=== PATIENT | female | born 1940 | race Caucasian/White ===

== ENCOUNTER 2022-04-18 12:58 | Inpatient (IN) | payer MEDICARE ==
[~2022-04-18 12:58] MED LIST: Iopamidol-370 76% 500 ML 1 ML ONE
[2022-04-18] MEDS ORDERED: FENTANYL 50 MCG/ML 1 ML VIAL ONE ×2 (13:07)
[2022-04-18] MEDS ORDERED: Fentanyl CADD 100 ML IV SCH (13:15)
[2022-04-18 13:25] LABS: Actual Bicarbonate (HCO3a) 29.2 mEq/L (22-28); Analyzer IN Cardio ER; Base Excess (BEa) 3.5 mEq/L (-2.0 to +3.0); CO2 Tension 49.3 mmHg (35.0-45.0); Calcium, Ionized (arterial) 1.11 mmol/L (1.12-1.30); Hemoglobin (Hb) 12.2 g/dL (12.0-16.0); O2 Tension (PaO2), arterial 105.7 mmHg (> 70.0); Potassium - ABG Lab 4.05 mmol/L (3.70-5.30); pH, Arterial 7.39 (7.35-7.45)
[2022-04-18 13:27] LABS: ALV-art Gradient 117.875 mmHg (0-20); Puncture Site RRA
[2022-04-18 13:46] LABS: #Lymphocytes 0.4 thou/uL (1.20-3.40); #Monocytes 0.2 thou/uL (0.11-0.59); %Basophils 0.1 % (0.0-1.0); %Eosinophils 0.1 % (0.0-10.0); %Lymphocytes 5.3 % (21.0-51.0); %Monocytes 1.9 % (0.0-10.0); %Neutrophils 92.5 % (42.0-75.0); Hemoglobin 11.3 g/dL (12.0-16.0); Mean Corpuscular HGB CONC 30.8 g/dL (32.0-36.0); Mean Corpuscular Hemoglobin 30.8 pg (27.0-31.0); Mean Platelet Volume 8.4 fL (7.4-10.4); Platelet Count 181 10x3/uL (130-400); RBC Distribution Width 12.6 % (11.5-14.5); Red Blood Cell (RBC) Count 3.68 mill/uL (4.20-5.40); White Blood Cell (WBC) Count 7.5 10x3/uL (4.8-10.8)
[2022-04-18] MEDS ORDERED: Midazolam HCl 2 mg/2 ml Vial ONE (13:47)
[2022-04-18 14:09] LABS: Bacteria/HPF None Seen HPF (None Seen); Bilirubin Negative (Negative); Blood, Urine Negative (Negative); Clarity Clear (Clear); Glucose, Urine (Dipstick) Normal (Negative); Ketone, Urine Negative (Negative); Leukocyte Negative Leu/uL (Negative); Nitrite Negative (Negative); Protein, Urine (Dipstick) 30 mg/dL (Neg-Trace); RBC/HPF 0-3 HPF (0-3); Squamous Epithelial 0-3 HPF (0-3); Urobilinogen Normal mg/dL (Less than 2); WBC/HPF 0-3 HPF (0-3)
[2022-04-18 14:09] LABS: ALT (SGPT) 16 U/L (8-55); AST (SGOT) 23 U/L (5-34); Albumin 3.9 g/dL (3.4-4.8); Alkaline Phosphatase 68 U/L (40-110); Anion Gap 13 mmol/L (10-20); BUN (Urea Nitrogen) 9 mg/dL (9.8-20.1); Bilirubin, Total 0.6 mg/dL (0.2-1.2); Calc. Creatinine Clearance 0 mL/min (70-130); Calcium 8.7 mg/dL (7.8-10.44); Carbon Dioxide 27 mmol/L (23-31); Chloride 102 mmol/L (98-107); Estimated GFR 86; Globulin 2.4 g/dL (2.4-3.5); Glucose 178 mg/dL (83-110); Potassium 4.2 mmol/L (3.5-5.1); Protein, Total 6.3 g/dL (5.8-8.1); Sodium 138 mmol/L (136-145)
[2022-04-18 14:16] LABS: SARS-CoV-2 NAA Rapid Test Not Detected (NotDetected)
[2022-04-18] MEDS ORDERED: Cefepime 2 GM VIAL ONE (14:31)
[2022-04-18] MEDS ORDERED: Propofol 1,000 MG/100 ML VIAL IV ONE (14:43)
[2022-04-18] MEDS ORDERED: Vancomycin 1 GM/200 ML (FROZEN) BAG ONE (15:24)
[2022-04-18] MEDS ORDERED: Ventilator Sedation Protocol 1 EACH FS SCH (16:20)
[2022-04-18] MEDS ORDERED: Midazolam HCl 2 mg/2 ml Vial SLOW IVP PRN (16:23)
[2022-04-18] MEDS ORDERED: DISCONTINUE PREVIOUS NARCOTIC PAIN MEDICATIONS AND BENZODIAZEPINES FS SCH (16:30)
[2022-04-18] MEDS ORDERED: Morphine 4 MG/ML VIAL SLOW IVP PRN (16:30)
[2022-04-18] MEDS ORDERED: Propofol BOLUS 1,000 MG/100 ML VIAL IV PRN (16:30)
[2022-04-18] MEDS ORDERED: Fentanyl BOLUS 250 ML IVPB PRN (16:30)
[2022-04-18] MEDS: Propofol 1,000 MG/100 ML VIAL IV PRN (17:48)
[2022-04-18] MEDS: methylPREDNISolone Sod Succ 40 MG VIAL IVP SCH ×2 (17:48→23:12)
[2022-04-18] MEDS: Azithromycin 500 MG in Sodium Chloride 0.9% 250 ML 250 ML IVPB SCH (20:17)
[2022-04-18] MEDS: cefTRIAXone\\ROCEPHIN 1 GM in Sodium Chloride 0.9% 100 ML IVPB SCH (20:21)
[2022-04-19 04:21] LABS: #Lymphocytes 0.5 thou/uL (1.20-3.40); #Monocytes 0.2 thou/uL (0.11-0.59); #Neutrophils 3.3 thou/uL (1.40-6.50); %Basophils 0.4 % (0.0-1.0); %Eosinophils 0.2 % (0.0-10.0); %Lymphocytes 12.9 % (21.0-51.0); %Monocytes 5.2 % (0.0-10.0); %Neutrophils 81.2 % (42.0-75.0); Hemoglobin 10.7 g/dL (12.0-16.0); Mean Corpuscular HGB CONC 31.5 g/dL (32.0-36.0); Mean Corpuscular Hemoglobin 31.1 pg (27.0-31.0); Mean Corpuscular Volume 98.6 fl (78.0-98.0); Mean Platelet Volume 9.3 fL (7.4-10.4); Platelet Count 159 10x3/uL (130-400); RBC Distribution Width 12.7 % (11.5-14.5); Red Blood Cell (RBC) Count 3.45 mill/uL (4.20-5.40)
[2022-04-19 04:37] LABS: Anion Gap 11 mmol/L (10-20); BUN (Urea Nitrogen) 10 mg/dL (9.8-20.1); Calc. Creatinine Clearance 65 mL/min (70-130); Calcium 8.2 mg/dL (7.8-10.44); Carbon Dioxide 27 mmol/L (23-31); Chloride 106 mmol/L (98-107); Estimated GFR 91; Glucose 133 mg/dL (83-110); Potassium 4.2 mmol/L (3.5-5.1); Sodium 140 mmol/L (136-145)
[2022-04-19] MEDS ORDERED: Fentanyl CADD 100 ML ONE (04:41)
[2022-04-19] MEDS: Fentanyl CADD 100 ML IV SCH (05:07)
[2022-04-19] MEDS: methylPREDNISolone Sod Succ 40 MG VIAL IVP SCH ×2 (06:29→20:03)
[2022-04-19] MEDS ORDERED: Insulin Regular 300 UNITS/3 ML VIAL SC PRN (09:51)
[2022-04-19] MEDS ORDERED: Metoclopramide HCl 10 MG/2 ML VIAL IVP SCH (10:00)
[2022-04-19] MEDS ORDERED: Dextrose 5%-Lactated Ringers 1,000 ML IV SCH (10:00)
[2022-04-19] MEDS ORDERED: Famotidine/PF 20 mg/2ml Vial SLOW IVP SCH (10:15)
[2022-04-19] MEDS: Enoxaparin Sodium 40 MG/0.4 ML SYRINGE SC SCH (10:30)
[2022-04-19] MEDS: Propofol 1,000 MG/100 ML VIAL IV PRN ×2 (12:14→20:18)
[2022-04-19] MEDS: Ondansetron PF 4 MG/2 ML Vial IVP SCH ×2 (12:36→20:03)
[2022-04-19] MEDS: Azithromycin 500 MG in Sodium Chloride 0.9% 250 ML 250 ML IVPB SCH (17:32)
[2022-04-19] MEDS: cefTRIAXone\\ROCEPHIN 1 GM in Sodium Chloride 0.9% 100 ML IVPB SCH (20:03)
[2022-04-19] MEDS: Famotidine/PF 20 mg/2ml Vial SLOW IVP SCH (20:03)
[2022-04-20] MEDS: Fentanyl CADD 100 ML IV SCH (00:27)
[2022-04-20] MEDS: Ondansetron PF 4 MG/2 ML Vial IVP SCH (04:34)
[2022-04-20] MEDS: Propofol 1,000 MG/100 ML VIAL IV PRN (06:19)
[2022-04-20] MEDS ORDERED: Dexmedetomidine In 0.9 % NaCl 100 ML IVPB SCH (08:30)
[2022-04-20] MEDS: Famotidine/PF 20 mg/2ml Vial SLOW IVP SCH ×2 (09:37→21:13)
[2022-04-20] MEDS: methylPREDNISolone Sod Succ 40 MG VIAL IVP SCH ×2 (09:37→21:13)
[2022-04-20] MEDS: Enoxaparin Sodium 40 MG/0.4 ML SYRINGE SC SCH (09:37)
[2022-04-20] MEDS ORDERED: Morphine 4 MG/ML VIAL SLOW IVP PRN (09:58)
[2022-04-20] MEDS: Morphine 4 MG/ML VIAL SLOW IVP PRN (14:02)
[2022-04-20] MEDS ORDERED: Ondansetron PF 4 MG/2 ML Vial IVP PRN (15:32)
[2022-04-20] MEDS ORDERED: Ondansetron PF 4 MG/2 ML Vial IVP SCH (15:45)
[2022-04-20] MEDS: Azithromycin 500 MG in Sodium Chloride 0.9% 250 ML 250 ML IVPB SCH (16:52)
[2022-04-20] MEDS: cefTRIAXone\\ROCEPHIN 1 GM in Sodium Chloride 0.9% 100 ML IVPB SCH (21:13)
[2022-04-21] MEDS: hydrALAZINE 20 MG/ML VIAL SLOW IVP PRN (00:20)
[2022-04-21] MEDS: Morphine 4 MG/ML VIAL SLOW IVP PRN ×2 (01:24→18:42)
[2022-04-21] MEDS: Famotidine/PF 20 mg/2ml Vial SLOW IVP SCH ×2 (10:36→21:13)
[2022-04-21] MEDS: methylPREDNISolone Sod Succ 40 MG VIAL IVP SCH ×2 (10:37→21:13)
[2022-04-21] MEDS: Enoxaparin Sodium 40 MG/0.4 ML SYRINGE SC SCH (10:37)
[2022-04-21] MEDS: Azithromycin 500 MG in Sodium Chloride 0.9% 250 ML 250 ML IVPB SCH (18:18)
[2022-04-21] MEDS: cefTRIAXone\\ROCEPHIN 1 GM in Sodium Chloride 0.9% 100 ML IVPB SCH (21:13)
[2022-04-22] MEDS: methylPREDNISolone Sod Succ 40 MG VIAL IVP SCH (08:48)
[2022-04-22] MEDS: Famotidine/PF 20 mg/2ml Vial SLOW IVP SCH ×2 (08:48→21:05)
[2022-04-22] MEDS: Enoxaparin Sodium 40 MG/0.4 ML SYRINGE SC SCH (08:49)
[2022-04-22] MEDS ORDERED: Lactated Ringer's 1,000 ML IV SCH (11:30)
[2022-04-22 12:40] LABS: Anion Gap 14 mmol/L (10-20); BUN (Urea Nitrogen) 19 mg/dL (9.8-20.1); Calc. Creatinine Clearance 58 mL/min (70-130); Calcium 8.7 mg/dL (7.8-10.44); Carbon Dioxide 27 mmol/L (23-31); Chloride 100 mmol/L (98-107); Estimated GFR 89; Glucose 108 mg/dL (83-110); Potassium 4.1 mmol/L (3.5-5.1); Sodium 137 mmol/L (136-145)
[2022-04-22] MEDS: Azithromycin 500 MG in Sodium Chloride 0.9% 250 ML 250 ML IVPB SCH (18:06)
[2022-04-22] MEDS: Diltiazem 125 MG in Sodium Chloride 0.9% 100 ML IVPB PRN (19:10)
[2022-04-22] MEDS: HYDROcodone/Acetaminophen 10/325 mg Tablet PO PRN (21:04)
[2022-04-22] MEDS: cefTRIAXone\\ROCEPHIN 1 GM in Sodium Chloride 0.9% 100 ML IVPB SCH (21:05)
[2022-04-23] MEDS: hydrALAZINE 20 MG/ML VIAL SLOW IVP PRN (03:47)
[2022-04-23 04:50] LABS: #Eosinphils 0.1 thou/uL (0.0-0.7); #Lymphocytes 1.5 thou/uL (1.20-3.40); #Monocytes 1.3 thou/uL (0.11-0.59); %Basophils 0.3 % (0.0-1.0); %Eosinophils 0.5 % (0.0-10.0); %Lymphocytes 13.6 % (21.0-51.0); %Monocytes 12.3 % (0.0-10.0); %Neutrophils 73.2 % (42.0-75.0); Hemoglobin 12.6 g/dL (12.0-16.0); Mean Corpuscular HGB CONC 31.5 g/dL (32.0-36.0); Mean Corpuscular Hemoglobin 30.8 pg (27.0-31.0); Mean Corpuscular Volume 97.7 fl (78.0-98.0); Mean Platelet Volume 8.5 fL (7.4-10.4); Platelet Count 230 10x3/uL (130-400); RBC Distribution Width 12.6 % (11.5-14.5); Red Blood Cell (RBC) Count 4.08 mill/uL (4.20-5.40); White Blood Cell (WBC) Count 10.9 10x3/uL (4.8-10.8)
[2022-04-23 05:10] LABS: Anion Gap 16 mmol/L (10-20); BUN (Urea Nitrogen) 13 mg/dL (9.8-20.1); Calc. Creatinine Clearance 59 mL/min (70-130); Carbon Dioxide 28 mmol/L (23-31); Chloride 98 mmol/L (98-107); Estimated GFR 91; Glucose 84 mg/dL (83-110); Potassium 3.5 mmol/L (3.5-5.1); Sodium 138 mmol/L (136-145)
[2022-04-23] MEDS: HYDROcodone/Acetaminophen 10/325 mg Tablet PO PRN (06:49)
[2022-04-23] MEDS ORDERED: Acetaminophen 325 MG TAB PO PRN (08:27)
[2022-04-23] MEDS ORDERED: methylPREDNISolone Sod Succ 40 MG VIAL IVP SCH (09:00)
[2022-04-23] MEDS: Famotidine/PF 20 mg/2ml Vial SLOW IVP SCH (09:03)
[2022-04-23] MEDS: Enoxaparin Sodium 40 MG/0.4 ML SYRINGE SC SCH (09:03)
[2022-04-23] MEDS ORDERED: Flecainide 50 MG TAB PO SCH ×2 (09:45→21:00)
[2022-04-23] MEDS: Azithromycin 500 MG in Sodium Chloride 0.9% 250 ML 250 ML IVPB SCH (16:36)
[2022-04-23] MEDS: Diltiazem 125 MG in Sodium Chloride 0.9% 100 ML IVPB PRN (18:44)
[2022-04-23] MEDS: Budesonide 0.5 MG/2 ML NEB NEB SCH (20:15)
[2022-04-23] MEDS: diphenhydrAMINE 25 MG CAP PO SCH (20:56)
[2022-04-23] MEDS: Gabapentin 400 MG CAP PO SCH (20:56)
[2022-04-23] MEDS: HYDROcodone/Acetaminophen 10/325 mg Tablet PO SCH (20:57)
[2022-04-23] MEDS: cefTRIAXone\\ROCEPHIN 1 GM in Sodium Chloride 0.9% 100 ML IVPB SCH (20:57)
[2022-04-24] MEDS: Budesonide 0.5 MG/2 ML NEB NEB SCH ×2 (06:50→19:26)
[2022-04-24] MEDS: Ascorbic Acid 500 mg Chewable Tablet PO SCH (09:54)
[2022-04-24] MEDS: Enoxaparin Sodium 40 MG/0.4 ML SYRINGE SC SCH (09:55)
[2022-04-24] MEDS ORDERED: predniSONE 20 MG TAB PO SCH (16:00)
[2022-04-24] MEDS: Dronedarone HCl 400 MG TAB PO SCH (16:30)
[2022-04-24 18:23] VITALS: BMI 18.3
[2022-04-24] MEDS: diphenhydrAMINE 25 MG CAP PO SCH (20:23)
[2022-04-24] MEDS: Lisinopril 10 MG TAB PO SCH (20:23)
[2022-04-24] MEDS: Gabapentin 400 MG CAP PO SCH (20:23)
[2022-04-24] MEDS: Senokot S 8.6-50 MG TAB PO SCH (20:23)
[2022-04-24] MEDS: HYDROcodone/Acetaminophen 10/325 mg Tablet PO SCH (20:24)
[2022-04-25] MEDS: Budesonide 0.5 MG/2 ML NEB NEB SCH ×2 (07:51→18:44)
[2022-04-25] MEDS: Dronedarone HCl 400 MG TAB PO SCH ×2 (09:12→17:53)
[2022-04-25] MEDS: Ascorbic Acid 500 mg Chewable Tablet PO SCH (09:12)
[2022-04-25] MEDS: Enoxaparin Sodium 40 MG/0.4 ML SYRINGE SC SCH (09:12)
[2022-04-25] MEDS: Senokot S 8.6-50 MG TAB PO SCH ×2 (09:13→21:21)
[2022-04-25] MEDS: Lisinopril 10 MG TAB PO SCH ×2 (09:13→21:20)
[2022-04-25] MEDS: Polyethylene Glycol 3350 17 GM Packet PO SCH (09:13)
[2022-04-25] MEDS ORDERED: Metoprolol Tartrate 5 MG/5 ML VIAL IVP SCH (11:15)
[2022-04-25] MEDS: HYDROcodone/Acetaminophen 10/325 mg Tablet PO PRN (13:36)
[2022-04-25] MEDS: diphenhydrAMINE 25 MG CAP PO SCH (21:19)
[2022-04-25] MEDS: Gabapentin 400 MG CAP PO SCH (21:20)
[2022-04-25] MEDS: HYDROcodone/Acetaminophen 10/325 mg Tablet PO SCH (21:21)
[2022-04-26] MEDS: Budesonide 0.5 MG/2 ML NEB NEB SCH (07:12)
[2022-04-26 08:26] VITALS: TEMP 97.3
[2022-04-26] MEDS: Lisinopril 10 MG TAB PO SCH (09:44)
[2022-04-26] MEDS: Senokot S 8.6-50 MG TAB PO SCH (09:44)
[2022-04-26] MEDS: Ascorbic Acid 500 mg Chewable Tablet PO SCH (09:44)
[2022-04-26] MEDS: Dronedarone HCl 400 MG TAB PO SCH (09:44)
[2022-04-26] MEDS: Enoxaparin Sodium 40 MG/0.4 ML SYRINGE SC SCH (09:45)
[2022-04-26] MEDS: Polyethylene Glycol 3350 17 GM Packet PO SCH (09:45)
[2022-04-26 12:58] VITALS: BP 136/63
== END 2022-04-26 17:00 | disposition home or self-care (01) | DRG 208 ==
LOC: EDBD 12:58 → ERS 12:58 → CCU 15:16 → 2NO 04-22 15:24
PROVIDERS: ADMIT Internal Medicine; ATTEND Internal Medicine
PROC: 5A1945Z Respiratory Ventilation, 24-96 Consecutive Hours (ICD-10-PCS; principal; 2022-04-18)
PROC: 0BH17EZ Insertion of Endotracheal Airway into Trachea, Via Natural or Artificial Opening (ICD-10-PCS; 2022-04-18)
DX: J44.1 Chronic obstructive pulmonary disease with (acute) exacerbation (principal); J96.21 Acute and chronic respiratory failure with hypoxia; C34.90 Malignant neoplasm of unspecified part of unspecified bronchus or lung; R64 Cachexia; C77.1 Secondary and unspecified malignant neoplasm of intrathoracic lymph nodes; J98.11 Atelectasis; T17.890A Other foreign object in other parts of respiratory tract causing asphyxiation, initial encounter; Z68.1 Body mass index [BMI] 19.9 or less, adult; I42.9 Cardiomyopathy, unspecified; Z66 Do not resuscitate; Z20.822 Contact with and (suspected) exposure to COVID-19; D63.8 Anemia in other chronic diseases classified elsewhere; I10 Essential (primary) hypertension; G47.00 Insomnia, unspecified; I48.0 Paroxysmal atrial fibrillation; Z88.2 Allergy status to sulfonamides; Z88.5 Allergy status to narcotic agent; Z79.51 Long term (current) use of inhaled steroids; Z79.82 Long term (current) use of aspirin; Z79.890 Hormone replacement therapy; Z79.899 Other long term (current) drug therapy; Z87.891 Personal history of nicotine dependence
CPT/HCPCS: 36415; 36416; 36600; 51702; 71045; 72191; 74019; 74230; 80048; 80053; 81003; 81015; 82306; 82805; 83605; 84145; 84443; 84484; 85025; 87040; 87086; 93005; 93010; 93306; 94002; 94003; 94640; 94660; 96361; 96365; 96367; 96375; J0360; J0456; J0692; J0696; J1650; J2250; J2270; J2405; J2704; J2765; J2920; J3010; J3370-JW; J3490; J7050; J7120; J7512; J7620; J7626; Q9967; S0028; U0002

== ENCOUNTER → 2022-07-03 | Outpatient (CLI) | payer MEDICARE | LOC: MERGE 05-29 10:15 → PET 09:30 | PROVIDERS: ATTEND Internal Medicine Hematology & Oncology | DX: C34.11 Malignant neoplasm of upper lobe, right bronchus or lung (principal) | CPT/HCPCS: 78815; A9552 ==

== ENCOUNTER 2022-07-16 09:55 | Outpatient (CLI) | payer MEDICARE | END 2022-07-16 09:56 | disposition home or self-care (01) | LOC: BICRAD 09:55 | PROVIDERS: ATTEND Nurse Practitioner Family | DX: M25.531 Pain in right wrist (principal) | CPT/HCPCS: 36415; 80053; 84436; 84443 ==

== ENCOUNTER 2022-09-01 19:50 | Observation (INO) | payer MEDICARE ==
[2022-09-01 20:43] LABS: #Eosinphils 0.2 thou/uL (0.0-0.7); #Lymphocytes 1.4 thou/uL (1.20-3.40); #Monocytes 0.5 thou/uL (0.11-0.59); #Neutrophils 6.4 thou/uL (1.40-6.50); %Basophils 0.5 % (0.0-1.0); %Eosinophils 2.8 % (0.0-10.0); %Lymphocytes 16.2 % (21.0-51.0); %Monocytes 6.2 % (0.0-10.0); %Neutrophils 74.3 % (42.0-75.0); Hemoglobin 12.8 g/dL (12.0-16.0); Mean Corpuscular HGB CONC 32.7 g/dL (32.0-36.0); Mean Corpuscular Hemoglobin 31.5 pg (27.0-31.0); Mean Corpuscular Volume 96.4 fl (78.0-98.0); Mean Platelet Volume 7.4 fL (7.4-10.4); Platelet Count 251 10x3/uL (130-400); Red Blood Cell (RBC) Count 4.05 mill/uL (4.20-5.40); White Blood Cell (WBC) Count 8.6 10x3/uL (4.8-10.8)
[2022-09-01] MEDS ORDERED: HYDROcodone/Acetaminophen 10/325 mg Tablet ONE (20:44)
[2022-09-01 21:05] LABS: ALT (SGPT) 14 U/L (8-55); AST (SGOT) 25 U/L (5-34); Alkaline Phosphatase 96 U/L (40-110); Anion Gap 15 mmol/L (10-20); BUN (Urea Nitrogen) 9 mg/dL (9.8-20.1); Bilirubin, Total 0.4 mg/dL (0.2-1.2); Calc. Creatinine Clearance 0 mL/min (70-130); Calcium 9.1 mg/dL (7.8-10.44); Carbon Dioxide 27 mmol/L (23-31); Chloride 99 mmol/L (98-107); Estimated GFR 76; Globulin 2.5 g/dL (2.4-3.5); Glucose 128 mg/dL (83-110); Magnesium 1.8 mg/dL (1.6-2.6); Potassium 4.2 mmol/L (3.5-5.1); Protein, Total 6.5 g/dL (5.8-8.1); Sodium 137 mmol/L (136-145)
[2022-09-01] MEDS ORDERED: Ondansetron PF 4 MG/2 ML Vial IVP PRN (22:27)
[2022-09-01] MEDS ORDERED: Furosemide 20 MG/2 ML VIAL SLOW IVP SCH (22:45)
[2022-09-01 23:50] VITALS: BMI 18.8
[2022-09-01] MEDS ORDERED: Melatonin 3 MG TAB PO PRN (23:52)
[2022-09-02] MEDS: Acetaminophen 325 MG TAB PO PRN ×2 (00:02→11:55)
[2022-09-02] MEDS ORDERED: Morphine 4 MG/ML VIAL SLOW IVP SCH (00:15)
[2022-09-02] MEDS ORDERED: Gabapentin 300 MG CAP PO SCH (01:15)
[2022-09-02 05:00] LABS: #Lymphocytes 0.4 thou/uL (1.20-3.40); #Monocytes 0.1 thou/uL (0.11-0.59); #Neutrophils 3.2 thou/uL (1.40-6.50); %Eosinophils 0.4 % (0.0-10.0); %Lymphocytes 11.5 % (21.0-51.0); %Monocytes 2.1 % (0.0-10.0); %Neutrophils 85.9 % (42.0-75.0); Mean Corpuscular HGB CONC 31.8 g/dL (32.0-36.0); Mean Corpuscular Hemoglobin 30.6 pg (27.0-31.0); Mean Corpuscular Volume 96.1 fl (78.0-98.0); Mean Platelet Volume 7.7 fL (7.4-10.4); Platelet Count 293 10x3/uL (130-400); RBC Distribution Width 12.1 % (11.5-14.5); White Blood Cell (WBC) Count 3.7 10x3/uL (4.8-10.8)
[2022-09-02 05:23] LABS: Anion Gap 14 mmol/L (10-20); BUN (Urea Nitrogen) 8 mg/dL (9.8-20.1); Calc. Creatinine Clearance 45 mL/min (70-130); Calcium 9.1 mg/dL (7.8-10.44); Carbon Dioxide 29 mmol/L (23-31); Chloride 97 mmol/L (98-107); Estimated GFR 76; Glucose 162 mg/dL (83-110); Magnesium 1.8 mg/dL (1.6-2.6); Potassium 4.1 mmol/L (3.5-5.1); Sodium 136 mmol/L (136-145)
[2022-09-02] MEDS ORDERED: Non-Formulary Item 1 EACH (Levothyroxine Sodium [Levothyroxine] 88 MCG Capsule) PO SCH (07:30)
[2022-09-02] MEDS: Albuterol 200 PUFF (6.7GM INHALER) INH SCH ×2 (07:48→14:22)
[2022-09-02] MEDS ORDERED: predniSONE 20 MG TAB PO SCH (08:00)
[2022-09-02] MEDS ORDERED: Dronedarone HCl 400 MG TAB PO SCH (08:00)
[2022-09-02] MEDS: Ipratropium Bromide 0.06% Nasal Inhaler 15ml EA NARE SCH ×2 (08:03→14:34)
[2022-09-02] MEDS ORDERED: Polyethylene Glycol 3350 17 GM Packet PO SCH (09:00)
[2022-09-02] MEDS ORDERED: Lisinopril 10 MG TAB PO SCH (09:00)
[2022-09-02] MEDS ORDERED: Calcium Carbonate 600 MG + Vit D TAB PO SCH (09:00)
[2022-09-02] MEDS ORDERED: Furosemide 20 MG/2 ML VIAL SLOW IVP SCH (09:00)
[2022-09-02] MEDS ORDERED: Aspirin 81 mg Enteric Coated Tablet PO SCH (09:00)
[2022-09-02] MEDS ORDERED: Atorvastatin Calcium 20 MG TAB PO SCH (09:00)
[2022-09-02] MEDS ORDERED: Non-Formulary Item 1 EACH (Budesonide-Formoterol [Symbicort 160-4.5] 160 MG/4.5 MG Aer) INH SCH (09:00)
[2022-09-02] MEDS ORDERED: Non-Formulary Item 1 EACH (Calcium Carbonate/Vitamin D3 [Calcium 500 + Vitamin D3 400] 12 PO SCH (09:00)
[2022-09-02 12:09] VITALS: BP 136/59; TEMP 98.7
[2022-09-02] MEDS ORDERED: HYDROcodone/Acetaminophen 10/325 mg Tablet PO SCH ×2 (14:15→21:00)
[2022-09-02] MEDS ORDERED: Mometasone 200 MCG/Formoterol 5 MCG 120 PUFF INHALER INH SCH (18:30)
[2022-09-03] MEDS ORDERED: Levothyroxine Sodium 88 MCG TAB PO SCH (06:00)
== END 2022-09-02 16:30 | disposition home or self-care (01) ==
LOC: ERS 19:50 → 2NO 22:17
PROVIDERS: ADMIT Hospitalist; ATTEND Hospitalist
DX: J44.1 Chronic obstructive pulmonary disease with (acute) exacerbation (principal); I11.0 Hypertensive heart disease with heart failure; I50.43 Acute on chronic combined systolic (congestive) and diastolic (congestive) heart failure; J96.11 Chronic respiratory failure with hypoxia; I48.20 Chronic atrial fibrillation, unspecified; C34.91 Malignant neoplasm of unspecified part of right bronchus or lung; E03.9 Hypothyroidism, unspecified; M81.0 Age-related osteoporosis without current pathological fracture; Z66 Do not resuscitate; Z87.891 Personal history of nicotine dependence; Z79.82 Long term (current) use of aspirin; Z79.890 Hormone replacement therapy; Z79.899 Other long term (current) drug therapy; Z88.2 Allergy status to sulfonamides; Z88.6 Allergy status to analgesic agent; Z99.81 Dependence on supplemental oxygen
CPT/HCPCS: 71045; 80048; 80053; 83735 ×2; 83880; 84484; 85025 ×2; 93005; 96372; 96374; 96375; 96376; 99285; G0378 ×3; 36415; J1650; J1940; J2270; J7512

== ENCOUNTER 2022-09-16 10:23 | Inpatient (IN) | payer MEDICARE ==
[~2022-09-16 10:23] MED LIST changes: -Iopamidol-370 76% 500 ML 1 ML ONE; +Iopamidol-370 76% 500 ML MDV (1 ML CHARGE) ONE
[2022-09-16] MEDS ORDERED: Cefepime 2 GM VIAL ONE (10:46)
[2022-09-16 11:26] LABS: Hemoglobin 10.6 g/dL (12.0-16.0); Mean Corpuscular HGB CONC 33.4 g/dL (32.0-36.0); Mean Corpuscular Hemoglobin 31.2 pg (27.0-31.0); Mean Corpuscular Volume 93.4 fl (78.0-98.0); Mean Platelet Volume 7.3 fL (7.4-10.4); Platelet Count 213 10x3/uL (130-400); RBC Distribution Width 12.6 % (11.5-14.5)
[2022-09-16] MEDS ORDERED: Vancomycin 1 GM in Premix Bag 1 BAG IVPB SCH (11:30)
[2022-09-16 11:45] LABS: ALT (SGPT) 14 U/L (8-55); AST (SGOT) 18 U/L (5-34); Albumin 2.7 g/dL (3.4-4.8); Alkaline Phosphatase 57 U/L (40-110); Anion Gap 12 mmol/L (10-20); BUN (Urea Nitrogen) 14 mg/dL (9.8-20.1); Bilirubin, Total 0.7 mg/dL (0.2-1.2); Calc. Creatinine Clearance 0 mL/min (70-130); Calcium 7.5 mg/dL (7.8-10.44); Carbon Dioxide 25 mmol/L (23-31); Chloride 101 mmol/L (98-107); Estimated GFR 75; Globulin 1.8 g/dL (2.4-3.5); Glucose 82 mg/dL (83-110); Lipase 8 U/L (8-78); Potassium 3.6 mmol/L (3.5-5.1); Protein, Total 4.5 g/dL (5.8-8.1); Sodium 134 mmol/L (136-145)
[2022-09-16] MEDS ORDERED: Morphine 2 MG/ML VIAL ONE (11:52)
[2022-09-16 11:59] LABS: Band 13 % (5-11); Lymphocytes 6 % (21-51); MDiff Complete? YES; Monocytes 4 % (0-10); Neutrophil 77 % (42-75); Platelet Morphology Comment Appears Adequate; Polychromasia SLIGHT = 2-3 cells (100X) (0-2/hpf)
[2022-09-16 12:05] LABS: CKMB 0.5 ng/mL (0-6.6)
[2022-09-16 12:48] LABS: SARS-CoV-2 NAA Rapid Test Not Detected (NotDetected)
[2022-09-16 13:14] LABS: Bilirubin Negative (Negative); Blood, Urine Negative (Negative); Clarity Clear (Clear); Glucose, Urine (Dipstick) Normal (Negative); Ketone, Urine Negative (Negative); Leukocyte Negative Leu/uL (Negative); Nitrite Negative (Negative); Protein, Urine (Dipstick) 10 mg/dL (Neg-Trace); Specific Gravity, Urine 1.011 (1.002-1.036); Urobilinogen Normal mg/dL (Less than 2); pH, Urine 7.5 (5.0-9.0)
[2022-09-16] MEDS ORDERED: Calcium Carbonate 500 MG ChewTAB PO PRN (14:39)
[2022-09-16] MEDS ORDERED: Ondansetron PF 4 MG/2 ML Vial IVP PRN (14:39)
[2022-09-16] MEDS ORDERED: Senokot S 8.6-50 MG TAB PO PRN (14:39)
[2022-09-16] MEDS ORDERED: Ondansetron ODT 4 MG TAB PO PRN (14:39)
[2022-09-16] MEDS ORDERED: methylPREDNISolone Sod Succ 40 MG VIAL IVP SCH (15:15)
[2022-09-16 17:00] VITALS: BMI 17.8
[2022-09-16] MEDS: Dronedarone HCl 400 MG TAB PO SCH (17:47)
[2022-09-16] MEDS: Acetaminophen 325 MG TAB PO PRN (17:48)
[2022-09-16 18:35] LABS: Troponin I 0.049 ng/mL (< 0.028)
[2022-09-16] MEDS: Ipratropium Bromide 2.5 ml Neb NEB SCH ×2 (18:37→23:30)
[2022-09-16] MEDS: Mometasone 200 MCG/Formoterol 5 MCG 120 PUFF INHALER INH SCH (18:38)
[2022-09-16 20:30] LABS: Troponin I 0.049 ng/mL (< 0.028)
[2022-09-16] MEDS: Gabapentin 300 MG CAP PO SCH (20:33)
[2022-09-16] MEDS ORDERED: Cefepime 1 GM in Sodium Chloride 0.9% 100 ML IVPB SCH (23:00)
[2022-09-17] MEDS: HYDROcodone/Acetaminophen 10/325 mg Tablet PO PRN ×4 (00:05→21:25)
[2022-09-17] MEDS: diphenhydrAMINE 50 MG CAP PO PRN ×2 (00:12→22:21)
[2022-09-17] MEDS: Levothyroxine Sodium 88 MCG TAB PO SCH (06:15)
[2022-09-17 06:40] LABS: Hemoglobin 10.8 g/dL (12.0-16.0); Mean Corpuscular HGB CONC 33.5 g/dL (32.0-36.0); Mean Corpuscular Hemoglobin 31.5 pg (27.0-31.0); Mean Platelet Volume 7.5 fL (7.4-10.4); Platelet Count 191 10x3/uL (130-400); RBC Distribution Width 12.7 % (11.5-14.5); Red Blood Cell (RBC) Count 3.42 mill/uL (4.20-5.40); White Blood Cell (WBC) Count 28.8 10x3/uL (4.8-10.8)
[2022-09-17 06:58] LABS: ALT (SGPT) 13 U/L (8-55); AST (SGOT) 15 U/L (5-34); Albumin 2.7 g/dL (3.4-4.8); Alkaline Phosphatase 63 U/L (40-110); Anion Gap 11 mmol/L (10-20); BUN (Urea Nitrogen) 15 mg/dL (9.8-20.1); Bilirubin, Total 0.4 mg/dL (0.2-1.2); Calc. Creatinine Clearance 50 mL/min (70-130); Calcium 8.1 mg/dL (7.8-10.44); Carbon Dioxide 27 mmol/L (23-31); Chloride 106 mmol/L (98-107); Estimated GFR 88; Globulin 2.1 g/dL (2.4-3.5); Glucose 94 mg/dL (83-110); Potassium 3.9 mmol/L (3.5-5.1); Protein, Total 4.8 g/dL (5.8-8.1); Sodium 140 mmol/L (136-145)
[2022-09-17] MEDS: Mometasone 200 MCG/Formoterol 5 MCG 120 PUFF INHALER INH SCH ×2 (07:22→18:50)
[2022-09-17] MEDS: Ipratropium Bromide 2.5 ml Neb NEB SCH ×4 (07:26→23:13)
[2022-09-17 07:50] LABS: Band 27 % (5-11); Lymphocytes 2 % (21-51); MDiff Complete? YES; Monocytes 1 % (0-10); Neutrophil 70 % (42-75); Platelet Morphology Comment Appears Adequate; Polychromasia SLIGHT = 2-3 cells (100X) (0-2/hpf)
[2022-09-17] MEDS: Calcium Carbonate 600 MG + Vit D TAB PO SCH (08:22)
[2022-09-17] MEDS: Dronedarone HCl 400 MG TAB PO SCH ×2 (08:22→16:57)
[2022-09-17] MEDS: Atorvastatin Calcium 20 MG TAB PO SCH (08:22)
[2022-09-17] MEDS: Aspirin 81 mg Enteric Coated Tablet PO SCH (08:22)
[2022-09-17] MEDS: methylPREDNISolone Sod Succ 40 MG VIAL IVP SCH (08:28)
[2022-09-17] MEDS ORDERED: Piperacillin/Tazobactam 3.375 GM in Sodium Chloride 0.9% 100 ML IVPB SCH ×2 (11:00→12:00)
[2022-09-17] MEDS ORDERED: Vancomycin 1 GM in Premix Bag 1 BAG IVPB SCH (12:00)
[2022-09-17] MEDS: Piperacillin/Tazobactam 3.375 GM in Sodium Chloride 0.9% 100 ML IVPB SCH ×2 (16:54→22:21)
[2022-09-17] MEDS: Acetaminophen 325 MG TAB PO PRN (18:25)
[2022-09-17] MEDS: Gabapentin 300 MG CAP PO SCH (21:24)
[2022-09-18] MEDS: Piperacillin/Tazobactam 3.375 GM in Sodium Chloride 0.9% 100 ML IVPB SCH ×3 (06:00→23:44)
[2022-09-18] MEDS: Levothyroxine Sodium 88 MCG TAB PO SCH (06:00)
[2022-09-18] MEDS: Dronedarone HCl 400 MG TAB PO SCH ×2 (07:36→18:26)
[2022-09-18] MEDS: Aspirin 81 mg Enteric Coated Tablet PO SCH (07:36)
[2022-09-18] MEDS: Atorvastatin Calcium 20 MG TAB PO SCH (07:37)
[2022-09-18] MEDS: HYDROcodone/Acetaminophen 10/325 mg Tablet PO PRN ×3 (07:37→20:58)
[2022-09-18] MEDS: methylPREDNISolone Sod Succ 40 MG VIAL IVP SCH (07:38)
[2022-09-18] MEDS: Calcium Carbonate 600 MG + Vit D TAB PO SCH (07:38)
[2022-09-18 07:53] LABS: Hemoglobin 9.9 g/dL (12.0-16.0); Mean Corpuscular HGB CONC 32.6 g/dL (32.0-36.0); Mean Corpuscular Hemoglobin 31.2 pg (27.0-31.0); Mean Corpuscular Volume 95.9 fl (78.0-98.0); Platelet Count 181 10x3/uL (130-400); RBC Distribution Width 12.7 % (11.5-14.5); Red Blood Cell (RBC) Count 3.16 mill/uL (4.20-5.40); White Blood Cell (WBC) Count 21.2 10x3/uL (4.8-10.8)
[2022-09-18 08:31] LABS: Anion Gap 11 mmol/L (10-20); BUN (Urea Nitrogen) 21 mg/dL (9.8-20.1); Calc. Creatinine Clearance 44 mL/min (70-130); Calcium 8.5 mg/dL (7.8-10.44); Carbon Dioxide 25 mmol/L (23-31); Chloride 103 mmol/L (98-107); Estimated GFR 76; Glucose 104 mg/dL (83-110); Potassium 4.3 mmol/L (3.5-5.1); Sodium 135 mmol/L (136-145)
[2022-09-18 08:41] LABS: Band 10 % (5-11); Lymphocytes 7 % (21-51); MDiff Complete? YES; Neutrophil 83 % (42-75); Platelet Morphology Comment Appears Adequate; Polychromasia SLIGHT = 2-3 cells (100X) (0-2/hpf)
[2022-09-18 11:42] LABS: Vancomycin, Trough 7.9 ug/mL
[2022-09-18] MEDS: VANCOMYCIN 1.25 GM/250 ML BAG 1.25 GM in Premix Bag 1 BAG IVPB SCH (13:13)
[2022-09-18] MEDS: Ipratropium Bromide 2.5 ml Neb NEB SCH ×3 (17:23→20:14)
[2022-09-18] MEDS: Mometasone 200 MCG/Formoterol 5 MCG 120 PUFF INHALER INH SCH ×2 (17:25→18:53)
[2022-09-18] MEDS: diphenhydrAMINE 25 MG CAP PO PRN (20:57)
[2022-09-18] MEDS: Gabapentin 300 MG CAP PO SCH (20:58)
[2022-09-19] MEDS: Ipratropium Bromide 2.5 ml Neb NEB SCH ×4 (00:33→18:47)
[2022-09-19] MEDS: Levothyroxine Sodium 88 MCG TAB PO SCH (06:11)
[2022-09-19] MEDS: Piperacillin/Tazobactam 3.375 GM in Sodium Chloride 0.9% 100 ML IVPB SCH ×3 (06:12→23:15)
[2022-09-19 07:38] LABS: Hemoglobin 10.9 g/dL (12.0-16.0); Mean Corpuscular Hemoglobin 30.7 pg (27.0-31.0); Mean Corpuscular Volume 95.9 fl (78.0-98.0); Mean Platelet Volume 8.3 fL (7.4-10.4); Platelet Count 223 10x3/uL (130-400); RBC Distribution Width 12.7 % (11.5-14.5); Red Blood Cell (RBC) Count 3.55 mill/uL (4.20-5.40); White Blood Cell (WBC) Count 20.5 10x3/uL (4.8-10.8)
[2022-09-19] MEDS: Mometasone 200 MCG/Formoterol 5 MCG 120 PUFF INHALER INH SCH ×2 (07:59→18:50)
[2022-09-19] MEDS: Dronedarone HCl 400 MG TAB PO SCH ×2 (08:57→15:59)
[2022-09-19] MEDS: Atorvastatin Calcium 20 MG TAB PO SCH (08:58)
[2022-09-19] MEDS: methylPREDNISolone Sod Succ 40 MG VIAL IVP SCH (08:58)
[2022-09-19] MEDS: Calcium Carbonate 600 MG + Vit D TAB PO SCH (08:58)
[2022-09-19] MEDS: Aspirin 81 mg Enteric Coated Tablet PO SCH (08:58)
[2022-09-19] MEDS ORDERED: Levalbuterol HCl 0.63 MG/3 ML NEB NEB SCH (09:30)
[2022-09-19] MEDS ORDERED: Furosemide 40 MG/4 ML VIAL SLOW IVP SCH (09:30)
[2022-09-19 09:47] LABS: Band 13 % (5-11); Lymphocytes 11 % (21-51); MDiff Complete? YES; Monocytes 2 % (0-10); Neutrophil 74 % (42-75); Nucleated RBC 1 % (0); RBC Morphology Normal
[2022-09-19] MEDS: VANCOMYCIN 1.25 GM/250 ML BAG 1.25 GM in Premix Bag 1 BAG IVPB SCH (12:48)
[2022-09-19] MEDS: Levalbuterol HCl 0.63 MG/3 ML NEB NEB SCH ×2 (17:46→23:26)
[2022-09-19] MEDS: rOPINIRole HCl 0.5 MG TAB PO SCH (20:59)
[2022-09-19] MEDS: guaiFENesin ER 600 MG TAB PO SCH (20:59)
[2022-09-19] MEDS: HYDROcodone/Acetaminophen 10/325 mg Tablet PO PRN (21:00)
[2022-09-19] MEDS: diphenhydrAMINE 25 MG CAP PO PRN (21:00)
[2022-09-19] MEDS: Gabapentin 300 MG CAP PO SCH (21:00)
[2022-09-19] MEDS: ALPRAZolam 0.25 MG TAB PO PRN (21:00)
[2022-09-20] MEDS: Ipratropium Bromide 2.5 ml Neb NEB SCH ×2 (01:49→09:03)
[2022-09-20] MEDS: Levothyroxine Sodium 88 MCG TAB PO SCH (05:52)
[2022-09-20] MEDS: HYDROcodone/Acetaminophen 10/325 mg Tablet PO PRN ×3 (05:53→20:38)
[2022-09-20] MEDS: Piperacillin/Tazobactam 3.375 GM in Sodium Chloride 0.9% 100 ML IVPB SCH (05:54)
[2022-09-20 07:31] LABS: #Lymphocytes 1.2 thou/uL (1.20-3.40); #Monocytes 1.1 thou/uL (0.11-0.59); %Basophils 0.1 % (0.0-1.0); %Eosinophils 0.3 % (0.0-10.0); %Lymphocytes 9.8 % (21.0-51.0); %Monocytes 8.8 % (0.0-10.0); %Neutrophils 81.1 % (42.0-75.0); Hemoglobin 10.6 g/dL (12.0-16.0); Mean Corpuscular HGB CONC 33.4 g/dL (32.0-36.0); Mean Corpuscular Hemoglobin 31.6 pg (27.0-31.0); Mean Corpuscular Volume 94.6 fl (78.0-98.0); Mean Platelet Volume 7.9 fL (7.4-10.4); Platelet Count 201 10x3/uL (130-400); RBC Distribution Width 12.5 % (11.5-14.5); Red Blood Cell (RBC) Count 3.35 mill/uL (4.20-5.40); White Blood Cell (WBC) Count 12.3 10x3/uL (4.8-10.8)
[2022-09-20 07:54] LABS: Anion Gap 14 mmol/L (10-20); BUN (Urea Nitrogen) 26 mg/dL (9.8-20.1); Calc. Creatinine Clearance 47 mL/min (70-130); Calcium 8.1 mg/dL (7.8-10.44); Carbon Dioxide 29 mmol/L (23-31); Chloride 100 mmol/L (98-107); Estimated GFR 82; Glucose 70 mg/dL (83-110); Magnesium 1.7 mg/dL (1.6-2.6); Sodium 140 mmol/L (136-145)
[2022-09-20] MEDS ORDERED: Potassium Chloride 20 MEQ TAB PO SCH (08:15)
[2022-09-20] MEDS: Dronedarone HCl 400 MG TAB PO SCH ×2 (08:18→16:44)
[2022-09-20] MEDS: guaiFENesin ER 600 MG TAB PO SCH ×2 (08:18→20:36)
[2022-09-20] MEDS: Calcium Carbonate 600 MG + Vit D TAB PO SCH (08:19)
[2022-09-20] MEDS: Aspirin 81 mg Enteric Coated Tablet PO SCH (08:19)
[2022-09-20] MEDS: Atorvastatin Calcium 20 MG TAB PO SCH (08:19)
[2022-09-20] MEDS ORDERED: predniSONE 20 MG TAB PO SCH (08:30)
[2022-09-20] MEDS: Amoxicillin/Potassium Clav 875 MG TAB PO SCH ×2 (08:32→20:36)
[2022-09-20] MEDS: Mometasone 200 MCG/Formoterol 5 MCG 120 PUFF INHALER INH SCH ×2 (09:03→18:54)
[2022-09-20] MEDS: Levalbuterol HCl 0.63 MG/3 ML NEB NEB SCH ×3 (09:03→23:21)
[2022-09-20 11:38] LABS: Vancomycin, Trough 11.6 ug/mL
[2022-09-20] MEDS: Ipratropium 200 Puff Oral Inhaler INH SCH ×3 (13:54→23:23)
[2022-09-20] MEDS ORDERED: Furosemide 20 MG TAB PO SCH (16:30)
[2022-09-20] MEDS: Gabapentin 300 MG CAP PO SCH (20:36)
[2022-09-20] MEDS: ALPRAZolam 0.25 MG TAB PO PRN (20:36)
[2022-09-20] MEDS: rOPINIRole HCl 0.5 MG TAB PO SCH (20:36)
[2022-09-20] MEDS: diphenhydrAMINE 25 MG CAP PO PRN (20:38)
[2022-09-21] MEDS: HYDROcodone/Acetaminophen 10/325 mg Tablet PO PRN (05:24)
[2022-09-21] MEDS: Levothyroxine Sodium 88 MCG TAB PO SCH (05:24)
[2022-09-21 06:26] LABS: #Basophils 0.1 thou/uL (0.0-0.2); #Lymphocytes 1.3 thou/uL (1.20-3.40); #Monocytes 1.2 thou/uL (0.11-0.59); #Neutrophils 7.4 thou/uL (1.40-6.50); %Basophils 0.7 % (0.0-1.0); %Eosinophils 0.2 % (0.0-10.0); %Lymphocytes 13.3 % (21.0-51.0); %Monocytes 12.4 % (0.0-10.0); %Neutrophils 73.5 % (42.0-75.0); Hemoglobin 10.4 g/dL (12.0-16.0); Mean Corpuscular HGB CONC 32.4 g/dL (32.0-36.0); Mean Corpuscular Hemoglobin 31.1 pg (27.0-31.0); Platelet Count 207 10x3/uL (130-400); RBC Distribution Width 12.6 % (11.5-14.5); Red Blood Cell (RBC) Count 3.36 mill/uL (4.20-5.40)
[2022-09-21 06:48] LABS: Anion Gap 9 mmol/L (10-20); BUN (Urea Nitrogen) 25 mg/dL (9.8-20.1); Calc. Creatinine Clearance 51 mL/min (70-130); Calcium 8.3 mg/dL (7.8-10.44); Carbon Dioxide 36 mmol/L (23-31); Chloride 99 mmol/L (98-107); Estimated GFR 88; Glucose 86 mg/dL (83-110); Potassium 3.2 mmol/L (3.5-5.1); Sodium 141 mmol/L (136-145)
[2022-09-21] MEDS ORDERED: predniSONE 20 MG TAB PO SCH (08:00)
[2022-09-21] MEDS ORDERED: Furosemide 20 MG TAB PO SCH (09:00)
[2022-09-21] MEDS: Mometasone 200 MCG/Formoterol 5 MCG 120 PUFF INHALER INH SCH (09:03)
[2022-09-21] MEDS: Ipratropium 200 Puff Oral Inhaler INH SCH (09:04)
[2022-09-21] MEDS: Levalbuterol HCl 0.63 MG/3 ML NEB NEB SCH (09:04)
[2022-09-21] MEDS: guaiFENesin ER 600 MG TAB PO SCH (09:06)
[2022-09-21] MEDS: Calcium Carbonate 600 MG + Vit D TAB PO SCH (09:06)
[2022-09-21] MEDS: Aspirin 81 mg Enteric Coated Tablet PO SCH (09:06)
[2022-09-21] MEDS: Amoxicillin/Potassium Clav 875 MG TAB PO SCH (09:06)
[2022-09-21] MEDS: Dronedarone HCl 400 MG TAB PO SCH (09:07)
[2022-09-21] MEDS: Atorvastatin Calcium 20 MG TAB PO SCH (09:07)
[2022-09-21 13:36] VITALS: BP 153/91; TEMP 98.2
== END 2022-09-21 13:00 | disposition home or self-care (01) | DRG 871 ==
LOC: SUATTDRO 10:23 → ERS 10:23 → ERHOLD 14:18 → T4-B 17:27
PROVIDERS: ADMIT Internal Medicine; ATTEND Family Medicine
DX: A41.9 Sepsis, unspecified organism (principal); E43 Unspecified severe protein-calorie malnutrition; I50.43 Acute on chronic combined systolic (congestive) and diastolic (congestive) heart failure; J18.9 Pneumonia, unspecified organism; J96.21 Acute and chronic respiratory failure with hypoxia; J69.0 Pneumonitis due to inhalation of food and vomit; C34.91 Malignant neoplasm of unspecified part of right bronchus or lung; J96.11 Chronic respiratory failure with hypoxia; I48.20 Chronic atrial fibrillation, unspecified; I42.9 Cardiomyopathy, unspecified; Z68.1 Body mass index [BMI] 19.9 or less, adult; I11.0 Hypertensive heart disease with heart failure; Z66 Do not resuscitate; J44.9 Chronic obstructive pulmonary disease, unspecified; E03.9 Hypothyroidism, unspecified; E78.5 Hyperlipidemia, unspecified; M81.0 Age-related osteoporosis without current pathological fracture; Z20.822 Contact with and (suspected) exposure to COVID-19; Z88.2 Allergy status to sulfonamides; Z88.8 Allergy status to other drugs, medicaments and biological substances; Z99.81 Dependence on supplemental oxygen; Z79.899 Other long term (current) drug therapy; Z79.51 Long term (current) use of inhaled steroids; Z79.890 Hormone replacement therapy; Z98.890 Other specified postprocedural states; Z90.89 Acquired absence of other organs
CPT/HCPCS: 36415; 36416; 71045; 71250; 74177; 80048; 80053; 80202; 81003; 82553; 83605; 83690; 83735; 83880; 84145; 84484; 85025; 86140; 87040; 87086; 93005; 94640; 94760; J0692; J1650; J1940; J2272; J2543; J2920; J3370; J3370-JW; J3490; J7512; J7614; Q9967

== ENCOUNTER 2022-09-30 09:08 | Outpatient (CLI) | payer MEDICARE | END 2022-09-30 09:09 | disposition home or self-care (01) | LOC: CT 09:08 → RAD 09:09 | PROVIDERS: ATTEND Nurse Practitioner Family | DX: Z09 Encounter for follow-up examination after completed treatment for conditions other than malignant neoplasm (principal); C34.01 Malignant neoplasm of right main bronchus; M50.21 Other cervical disc displacement, high cervical region; M50.221 Other cervical disc displacement at C4-C5 level; M50.322 Other cervical disc degeneration at C5-C6 level; M50.323 Other cervical disc degeneration at C6-C7 level; M19.039 Primary osteoarthritis, unspecified wrist; J96.11 Chronic respiratory failure with hypoxia; M54.14 Radiculopathy, thoracic region; I48.91 Unspecified atrial fibrillation; J43.2 Centrilobular emphysema; S41.1 Open wound of upper arm; Z99.81 Dependence on supplemental oxygen | CPT/HCPCS: 71046; 72125 ==

== ENCOUNTER 2023-01-08 10:15 | Outpatient (CLI) | payer MEDICARE | END 2023-01-08 10:16 | disposition home or self-care (01) | LOC: PET 10:15 | PROVIDERS: ATTEND Internal Medicine Hematology & Oncology | DX: C34.11 Malignant neoplasm of upper lobe, right bronchus or lung (principal); J98.4 Other disorders of lung | CPT/HCPCS: 78815; A9552 ==

== ENCOUNTER 2023-10-27 07:56 | Outpatient (CLI) | payer MEDICARE, OTHER ==
[2023-10-27] MEDS ORDERED: Iopamidol 370 76% 100 ML VIAL ONE (09:16)
== END 2023-10-27 07:57 | disposition home or self-care (01) ==
LOC: BICCT 07:56
PROVIDERS: ATTEND Nurse Practitioner Family
DX: S22.040A Wedge compression fracture of fourth thoracic vertebra, initial encounter for closed fracture (principal); S22.060A Wedge compression fracture of T7-T8 vertebra, initial encounter for closed fracture; S22.070A Wedge compression fracture of T9-T10 vertebra, initial encounter for closed fracture; S32.010A Wedge compression fracture of first lumbar vertebra, initial encounter for closed fracture; S41.1 Open wound of upper arm; C34.01 Malignant neoplasm of right main bronchus; C34.91 Malignant neoplasm of unspecified part of right bronchus or lung; J44.9 Chronic obstructive pulmonary disease, unspecified; I48.91 Unspecified atrial fibrillation; M19.039 Primary osteoarthritis, unspecified wrist; M54.2 Cervicalgia; I65.23 Occlusion and stenosis of bilateral carotid arteries; J96.11 Chronic respiratory failure with hypoxia; M25.531 Pain in right wrist; J44.1 Chronic obstructive pulmonary disease with (acute) exacerbation; M54.14 Radiculopathy, thoracic region; K62.89 Other specified diseases of anus and rectum; J98.4 Other disorders of lung; N13.30 Unspecified hydronephrosis; I70.90 Unspecified atherosclerosis; N28.89 Other specified disorders of kidney and ureter; Z71.89 Other specified counseling; Z99.81 Dependence on supplemental oxygen; Z79.891 Long term (current) use of opiate analgesic; Z79.899 Other long term (current) drug therapy
CPT/HCPCS: 74177; 82565; Q9967

== ENCOUNTER 2024-02-29 08:45 | Outpatient (CLI) | payer MEDICARE | END 2024-02-29 08:46 | disposition home or self-care (01) | LOC: PET 08:45 | PROVIDERS: ATTEND Internal Medicine Hematology & Oncology | DX: C34.11 Malignant neoplasm of upper lobe, right bronchus or lung (principal) | CPT/HCPCS: 78815; A9552 ==

== ENCOUNTER 2025-02-14 12:11 | Inpatient (IN) | payer OTHER ==
[2025-02-14 13:49] LABS: #Basophils 0.04 10x3/uL (0.0-0.2); #Eosinophils Less than 0.03 10x3/uL (0.0-0.7); #Monocytes 1.04 10x3/uL (0.11-0.59); #Neutrophils 16.43 10x3/uL (1.40-6.50); %Basophils 0.2 % (0.0-1.0); %Eosinophils 0.1 % (0.0-10.0); %Lymphocytes 7.1 % (21.0-51.0); %Monocytes 5.5 % (0.0-10.0); %Neutrophils 86.7 % (42.0-75.0); Hematocrit 37.9 % (36.0-47.0); Hemoglobin 12.6 g/dL (12.0-16.0); Mean Corpuscular Hemoglobin 29.3 pg (27.0-31.0); Mean Corpuscular Volume 88.1 fL (78.0-98.0); Platelet Count 291 10x3/uL (130-400); Red Blood Cell (RBC) Count 4.30 mill/uL (4.20-5.40); White Blood Cell (WBC) Count 18.93 10x3/uL (4.8-10.8)
[2025-02-14 14:22] LABS: ALT (SGPT) 8 U/L (Less than 34); AST (SGOT) 28 U/L (11-34); Albumin 3.8 g/dL (3.1-4.5); Alkaline Phosphatase 65 U/L (40-110); Anion Gap 16 mmol/L (10-20); BUN (Urea Nitrogen) 21 mg/dL (9.8-20.1); Bilirubin, Total 0.6 mg/dL (0.3-1.2); Calc. Creatinine Clearance 0 mL/min (70-130); Calcium 9.1 mg/dL (7.8-10.44); Carbon Dioxide 25 mmol/L (23-31); Chloride 93 mmol/L (98-107); Globulin 3.1 g/dL (2.4-3.5); Glucose 113 mg/dL (83-110); Lipase 8 U/L (8-78); Magnesium 2.2 mg/dL (1.6-2.6); Potassium 5.2 mmol/L (3.5-5.1); Sodium 129 mmol/L (136-145)
[2025-02-14 16:46] VITALS: BMI 19.0
[2025-02-14] MEDS ORDERED: Ondansetron PF 4 MG/2 ML Vial IVP PRN (16:52)
[2025-02-14] MEDS ORDERED: Electrolyte Replacement Protocol 1 EACH FS SCH (17:00)
[2025-02-14] MEDS ORDERED: HYDROmorphone 0.5 MG/0.5 ML SYRINGE ONE (17:51)
[2025-02-14] MEDS ORDERED: Nitroglycerin 0.4 MG TAB (25 Tab Bottle) SL PRN (18:58)
[2025-02-14] MEDS ORDERED: Nitroglycerin 0.4 MG TAB 1 EACH ONE (19:00)
[2025-02-14] MEDS ORDERED: NOREPINEPHRINE 8 MG/250 ML-D5W 250 ML ONE (19:19)
[2025-02-14] MEDS ORDERED: NOREPINEPHRINE 8 MG/250 ML-D5W 250 ML IVPB SCH (19:30)
[2025-02-14] MEDS ORDERED: Apixaban 2.5 MG TAB PO SCH (21:00)
[2025-02-14] MEDS ORDERED: Heparin 5,000 UNITS/ML VIAL SC SCH (21:00)
[2025-02-15 00:49] LABS: Anion Gap 15 mmol/L (10-20); BUN (Urea Nitrogen) 19 mg/dL (9.8-20.1); Calc. Creatinine Clearance 17 mL/min (70-130); Calcium 7.7 mg/dL (7.8-10.44); Carbon Dioxide 20 mmol/L (23-31); Chloride 100 mmol/L (98-107); Glucose 107 mg/dL (83-110); Potassium 4.2 mmol/L (3.5-5.1); Sodium 131 mmol/L (136-145)
[2025-02-15 05:16] LABS: ALT (SGPT) Less than 7 U/L (Less than 34); AST (SGOT) 18 U/L (11-34); Albumin 2.9 g/dL (3.1-4.5); Alkaline Phosphatase 48 U/L (40-110); Anion Gap 10 mmol/L (10-20); BUN (Urea Nitrogen) 19 mg/dL (9.8-20.1); Bilirubin, Total 0.5 mg/dL (0.3-1.2); Calc. Creatinine Clearance 19 mL/min (70-130); Calcium 7.8 mg/dL (7.8-10.44); Carbon Dioxide 27 mmol/L (23-31); Chloride 102 mmol/L (98-107); Globulin 2.1 g/dL (2.4-3.5); Glucose 88 mg/dL (83-110); Magnesium 1.9 mg/dL (1.6-2.6); Potassium 4.4 mmol/L (3.5-5.1); Sodium 135 mmol/L (136-145)
[2025-02-15 05:34] LABS: #Basophils 0.06 10x3/uL (0.0-0.2); #Eosinophils 0.15 10x3/uL (0.0-0.7); #Monocytes 0.86 10x3/uL (0.11-0.59); #Neutrophils 7.27 10x3/uL (1.40-6.50); %Basophils 0.6 % (0.0-1.0); %Eosinophils 1.5 % (0.0-10.0); %Lymphocytes 16.5 % (21.0-51.0); %Monocytes 8.6 % (0.0-10.0); %Neutrophils 72.5 % (42.0-75.0); Hematocrit 30.6 % (36.0-47.0); Hemoglobin 9.6 g/dL (12.0-16.0); Mean Corpuscular Hemoglobin 28.9 pg (27.0-31.0); Mean Corpuscular Volume 92.2 fL (78.0-98.0); Platelet Count 230 10x3/uL (130-400); Red Blood Cell (RBC) Count 3.32 mill/uL (4.20-5.40); White Blood Cell (WBC) Count 10.02 10x3/uL (4.8-10.8)
[2025-02-15] MEDS: Albumin 25% 25 GM (100 mL) BOT IVPB SCH ×2 (06:25→18:07)
[2025-02-15 07:15] LABS: Glucose, Urine (Dipstick) 100 mg/dL (Negative); Leukocyte 250 Leu/uL (Negative); Protein, Urine (Dipstick) 50 mg/dL (Neg-Trace); Specific Gravity, Urine 1.016 (1.002-1.036); WBC/HPF 21-50 HPF (0-3)
[2025-02-15 07:25] LABS: Bacteria/HPF Rare-Few HPF (None Seen)
[2025-02-15 07:45] LABS: Protein, Urine Random Quant 86.0 mg/dL (1-14); Sodium, Urine 79.0 mmol/L (Not Available)
[2025-02-15] MEDS: Aspirin 81 mg Enteric Coated Tablet PO SCH (08:43)
[2025-02-15] MEDS: Heparin 5,000 UNITS/ML VIAL SC SCH (08:43)
[2025-02-15] MEDS: Mupirocin 1 GM TUBE NASAL DECOLONIZATION NASAL SCH (08:43)
[2025-02-15] MEDS: PNEUMOC 20-VAL CONJ-DIP CRM/PF 0.5 ML SYRINGE IM ONE (11:25)
[2025-02-15 13:05] VITALS: BMI 18.3
[2025-02-15] MEDS: Gabapentin 300 MG CAP PO SCH (20:18)
[2025-02-15] MEDS: Melatonin 3 MG TAB PO PRN (21:04)
[2025-02-15] MEDS: diphenhydrAMINE 25 MG CAP PO PRN (22:51)
[2025-02-16] MEDS: Acetaminophen 325 MG TAB PO PRN (00:19)
[2025-02-16 01:51] LABS: Campy jejuni + coli by PCR Negative (Negative); STEC Shiga Toxin 1+2 Negative (Negative); Salmonella spp. by PCR Negative (Negative); Shigella spp + EIEC by PCR Negative (Negative)
[2025-02-16] MEDS: Albuterol 2.5 MG (3 mL) NEB NEB PRN (05:43)
[2025-02-16 09:54] LABS: Anion Gap 11 mmol/L (10-20); BUN (Urea Nitrogen) 17 mg/dL (9.8-20.1); Calc. Creatinine Clearance 39 mL/min (70-130); Calcium 8.0 mg/dL (7.8-10.44); Carbon Dioxide 25 mmol/L (23-31); Chloride 98 mmol/L (98-107); Glucose 82 mg/dL (83-110); Potassium 4.1 mmol/L (3.5-5.1); Sodium 130 mmol/L (136-145)
[2025-02-16] MEDS: dilTIAZem 25 MG/5 ML VIAL ONE (14:23)
[2025-02-16] MEDS: Furosemide 40 MG (4 mL) VIAL SLOW IVP SCH (14:24)
[2025-02-16] MEDS: Furosemide 40 MG (4 mL) VIAL ONE (14:25)
[2025-02-16] MEDS: Diltiazem HCl/D5W 125 MG in Premix 1 BAG IVPB SCH (15:42)
[2025-02-17 08:10] LABS: #Basophils Less than 0.03 10x3/uL (0.0-0.2); #Eosinophils 0.15 10x3/uL (0.0-0.7); #Monocytes 0.39 10x3/uL (0.11-0.59); #Neutrophils 4.25 10x3/uL (1.40-6.50); %Basophils 0.3 % (0.0-1.0); %Eosinophils 2.6 % (0.0-10.0); %Lymphocytes 16.0 % (21.0-51.0); %Monocytes 6.8 % (0.0-10.0); %Neutrophils 73.8 % (42.0-75.0); Hematocrit 30.6 % (36.0-47.0); Hemoglobin 10.1 g/dL (12.0-16.0); Mean Corpuscular Hemoglobin 29.5 pg (27.0-31.0); Mean Corpuscular Volume 89.5 fL (78.0-98.0); Platelet Count 275 10x3/uL (130-400); Red Blood Cell (RBC) Count 3.42 mill/uL (4.20-5.40); White Blood Cell (WBC) Count 5.76 10x3/uL (4.8-10.8)
[2025-02-17 08:27] LABS: Anion Gap 18 mmol/L (10-20); BUN (Urea Nitrogen) 20 mg/dL (9.8-20.1); Calc. Creatinine Clearance 31 mL/min (70-130); Calcium 8.9 mg/dL (7.8-10.44); Carbon Dioxide 22 mmol/L (23-31); Chloride 95 mmol/L (98-107); Glucose 97 mg/dL (83-110); Magnesium 1.6 mg/dL (1.6-2.6); Potassium 5.1 mmol/L (3.5-5.1); Sodium 130 mmol/L (136-145)
[2025-02-17] MEDS: Magnesium 2 GM/50 ML(in water) 2 GM in Premix 1 BAG IVPB SCH (14:36)
[2025-02-19 04:34] LABS: Hematocrit 29.0 % (36.0-47.0); Hemoglobin 9.2 g/dL (12.0-16.0); Mean Corpuscular Hemoglobin 28.8 pg (27.0-31.0); Mean Corpuscular Volume 90.6 fL (78.0-98.0); Platelet Count 231 10x3/uL (130-400); Red Blood Cell (RBC) Count 3.20 mill/uL (4.20-5.40); White Blood Cell (WBC) Count 5.56 10x3/uL (4.8-10.8)
[2025-02-19 04:57] LABS: Anion Gap 13 mmol/L (10-20); BUN (Urea Nitrogen) 19 mg/dL (9.8-20.1); Calc. Creatinine Clearance 47 mL/min (70-130); Calcium 8.1 mg/dL (7.8-10.44); Carbon Dioxide 24 mmol/L (23-31); Chloride 98 mmol/L (98-107); Glucose 70 mg/dL (83-110); Potassium 3.8 mmol/L (3.5-5.1); Sodium 131 mmol/L (136-145)
[2025-02-19] MEDS ORDERED: Furosemide 40 MG (4 mL) VIAL SLOW IVP SCH ×2 (08:00)
[2025-02-19] MEDS: Senokot S 8.6-50 MG TAB PO SCH (20:04)
[2025-02-20] MEDS: HYDROcodone/Acetaminophen 10/325 mg Tablet PO PRN (04:51)
[2025-02-20 05:10] LABS: Anion Gap 12 mmol/L (10-20); BUN (Urea Nitrogen) 15 mg/dL (9.8-20.1); Calc. Creatinine Clearance 40 mL/min (70-130); Calcium 8.5 mg/dL (7.8-10.44); Carbon Dioxide 26 mmol/L (23-31); Chloride 98 mmol/L (98-107); Glucose 78 mg/dL (83-110); Potassium 3.9 mmol/L (3.5-5.1); Sodium 132 mmol/L (136-145)
[2025-02-20] MEDS: Famotidine 20 MG TAB PO PRN (18:20)
[2025-02-20 19:59] VITALS: TEMP 98.4
[2025-02-20 21:11] VITALS: BP 113/55
== END 2025-02-20 21:56 | disposition home or self-care (01) | DRG 682 ==
LOC: ERS 12:11 → ERHOLD 16:00 → OBSVTOIN 20:57 → CCU 23:37 → 2NO 02-17 18:55
PROVIDERS: ADMIT Student in an Organized Health Care Education/Training Program; ATTEND Student in an Organized Health Care Education/Training Program
PROC: 30233J1 Transfusion of Nonautologous Serum Albumin into Peripheral Vein, Percutaneous Approach (ICD-10-PCS; principal; 2025-02-14)
PROC: 3E033XZ Introduction of Vasopressor into Peripheral Vein, Percutaneous Approach (ICD-10-PCS; 2025-02-14)
DX: N17.9 Acute kidney failure, unspecified (principal); J96.01 Acute respiratory failure with hypoxia; R57.1 Hypovolemic shock; I50.32 Chronic diastolic (congestive) heart failure; E87.1 Hypo-osmolality and hyponatremia; J44.9 Chronic obstructive pulmonary disease, unspecified; I11.0 Hypertensive heart disease with heart failure; E78.5 Hyperlipidemia, unspecified; G25.81 Restless legs syndrome; E03.9 Hypothyroidism, unspecified; K52.9 Noninfective gastroenteritis and colitis, unspecified; I48.0 Paroxysmal atrial fibrillation; M81.0 Age-related osteoporosis without current pathological fracture; I95.9 Hypotension, unspecified; D72.829 Elevated white blood cell count, unspecified; E87.5 Hyperkalemia; Z98.890 Other specified postprocedural states; Z79.890 Hormone replacement therapy; Z99.81 Dependence on supplemental oxygen; Z85.118 Personal history of other malignant neoplasm of bronchus and lung; Z88.8 Allergy status to other drugs, medicaments and biological substances; Z88.2 Allergy status to sulfonamides; Z79.899 Other long term (current) drug therapy; Z79.01 Long term (current) use of anticoagulants; Z79.52 Long term (current) use of systemic steroids
CPT/HCPCS: 36415; 71045; 76770; 80048; 80053; 81001; 82043; 83690; 83735; 83880; 84100; 84156; 84300; 84484; 85025; 85027; 87324; 87428; 87449; 87505; 93005; 93010; 94640; 94660; 96361; 96374; G0378; J1171; J1644; J1940; J2919; J3475; J3490; J7030; J7611; P9047